=== PATIENT | female | born 1995 ===

== ENCOUNTER → 2018-01-25 | Outpatient (CLI) | payer OTHER ==
--- NOTE | 2018-01-25 15:53 | RADIOLOGY IMAGING REPORT ---
[place] [facility] [place] NAME: Yanci Rahman : 1995 MR: [id number] V: [id number] EXAM DATE: ORDERING PHYSICIAN: [facility] TECHNOLOGIST: Location: [facility] Patient: Yanci Rahman : 1995 Visit/Account:[id number] Date of Sevice: 01/25/2018 EXAMINATION: Transvaginal pelvic ultrasound with duplex Doppler evaluation 01/25/2018 2:30 PM HISTORY: Left lower quadrant pain.; LMP: 01/13/2018 COMPARISON STUDIES: none. FINDINGS: Uterus: 6.3 x 3.6 x 4.8 cm. Uterus is retroverted. Myometrium: Rounded solid mass with shadowing along the margins in the lower uterine segment near the cervix measures 2.5 x 1.7 x 1.7 cm. Endometrium: Negative. 4 mm thickness. Cervix: negative Ovaries: right ovary 3.4 x 3.0 x 1.6 cm, left ovary 2.4 x 2.6 x 1.9 cm, both ovaries have normal smal l follicles. No competent or hemorrhagic follicle demonstrated. Blood flow is documented in each ovary by Doppler ultrasound. Adnexa: negative Free pelvic fluid: none IMPRESSION: 1. 2.5 cm solid mass in the lower uterine segment near the cervix appears to be a low positioned but otherwise unremarkable fibroid. 2. Otherwise negative study. No etiology for left lower quadrant pain demonstrated. I discussed exam findings with patient at the completion of this study and her breast ultrasound. Report Dictated By: Reji Schmitt MD at 01/25/2018 3:47 PM Report E-Signed By: Reji Schmitt MD at 01/25/2018 3:49 PM WSN:[id number]
--- NOTE | 2018-01-25 16:23 | RADIOLOGY IMAGING REPORT ---
FAC[place] [facility] [place]IENT NAME: GODWIN STROUD : [id number] MR: [id number] V: [id number] EXAM DATE: [id number] ORDERING PHYSICIAN: OTHER OTHER TECHNOLOGIST: Sheri Washington PROCEDURE:US RIGHT BREAST COMPLETE COMPARISON:None. INDICATIONS:BREAST CYST X2, 12-2o'clock FINDINGS: 4cm from the nipple at 12 o'clock Ultrasound demonstrates an oval hypoechoic solid mass which measures 1.5 x 1.3 x 0.8cm. 2cm from the nipple at 1 o'clock there is a rounded hypoechoic 4 x 4 x 2cm structure which maybe an additional solid mass or a small complicated cyst. 3cm from the nipple at 2 o'clock there is an oval homogeneous hypoechoic solid mass which is wider than tall which measures 1.8 x 1.4 x 0.6cm. 3cm from the nipple at 9 o'clock there is an additional oval hypoechoic solid wider than tall mass which measures 1.2 x 1.3 x 0.4cm. I discussed the exam findings with the patient after the completion of the Ultrasound. Given the appearance of these masses and their multiplicity, multiple fibroadenomas would be strongly favored. Short term follow-up imaging should be adequate. We discussed options of Ultrasound guided core biopsy or surgical consultation for excisional biopsy although that is not my recommendation at this time. DIAGNOSTIC CATEGORY 3--PROBABLY BENIGN FINDING. RECOMMENDATIONS: SIX MONTH FOLLOW-UP ULTRASOUND: RIGHT BREAST. IMPRESSION: BIRADS 3: Probably benign finding. Dictated by: Reji Schmitt on 01/25/2018 at 15:34 Transcribed by: NO on 01/25/2018 at 16:17 Approved by: Reji Schmitt on 01/25/2018 at 16:23 [facility]
== END ==
LOC: US 13:14
PROVIDERS: ATTEND Midwife
DX: D25.9 Leiomyoma of uterus, unspecified (principal); N60.01 Solitary cyst of right breast
CPT/HCPCS: 76856

== ENCOUNTER → 2018-08-01 | Outpatient (CLI) | payer OTHER ==
--- NOTE | 2018-08-02 16:42 | RADIOLOGY IMAGING REPORT ---
FACILITY: [facility] PATIENT NAME: GODWIN STROUD : [id number] MR: [id number] V: [id number] EXAM DATE: ORDERING PHYSICIAN: JAMA CARRION TECHNOLOGIST: Maru Loco RDMS(ABD,OBGYN,BR),RVT PROCEDURE:US RIGHT BREAST COMPLETE COMPARISON:None. INDICATIONS:6 MONTH FOLLOW-UP BREAST CYST FINDINGS: In the 12 o'clock position of the Right breast 4cm from the nipple there is a well circumscribed ovoid hypoechoic mass measuring 1.66 x 1.81 x 1.17cm. This is slightly increased in size when compared to the prior study. In the 2 o'clock position of the Right breast 2cm from the nipple is a 5mm well circumscribed ovoid hypoechoic nodule relatively unchanged. In the 2 o'clock position of the Right breast 3cm from the nipple there is a well circumscribed ovoid hypoechoic nodule measuring 1.7 x 1.5 x 0.7cm relatively unchanged when compared to the prior study. In the 9 o'clock position of the Right breast 3cm from the nipple there is a 1.3 x 1.2 x 0.38cm well circumscribed ovoid hypoechoic nodule relatively unchanged. DIAGNOSTIC CATEGORY 3--PROBABLY BENIGN FINDING. RECOMMENDATIONS: SIX MONTH FOLLOW-UP ULTRASOUND: RIGHT BREAST. IMPRESSION: BIRADS 3: Probably benign finding. Multiple well circumscribed hypoechoic breast masses are again seen as detailed above. Most of these have remained stable. The 1 hypoechoic mass in the 12 o'clock position of the Right breast is slightly increased in size. These likely represent multiple fibroadenoma however a 6 month follow-up Right breast Ultrasound is recommended. Dictated by: Liana Graves M.D. on 08/01/2018 at 17:05 Transcribed by: NO on 08/02/2018 at 10:17 Approved by: Liana Graves M.D. on 08/02/2018 at 16:41 [facility]
== END ==
LOC: US 04:16
PROVIDERS: ATTEND Midwife
DX: N60.01 Solitary cyst of right breast (principal)